=== PATIENT | male | born 1960 ===

== ENCOUNTER → 2019-09-06 09:25 | Outpatient (CLI) | payer OTHER, SELFPAY ==
[2019-09-06 10:48] LABS: Influenza A - CEPHEID Flu A NEGATIVE (NEGATIVE); Influenza B - CEPHEID Flu B NEGATIVE (NEGATIVE)
[2019-09-12 18:50] LABS: COVID19 Sendout Detected (Not Detected)
== END ==
PROVIDERS: PCP Nurse Practitioner Family; Visit Provider Physician Assistant
DX: J02.9 Acute pharyngitis, unspecified (principal); B97.29 Other coronavirus as the cause of diseases classified elsewhere
CPT/HCPCS: 87502; 87635